=== PATIENT | female | born 1990 | race African-American/Black ===

== ENCOUNTER 2017-09-09 10:29 | Emergency (ER) | payer OTHER | END 2017-09-09 11:28 | disposition home or self-care (01) | LOC: ER 10:29 | DX: M43.6 Torticollis (principal); J06.9 Acute upper respiratory infection, unspecified | CPT/HCPCS: 99283 ==

== ENCOUNTER 2020-01-23 01:08 | Emergency (ER) | payer OTHER ==
[2017-09-09 11:01] VITALS: BP 106/50
[~2020-01-23 01:08] MED LIST: AZIT250T PO; CYCL5TAB PO; DICL50TA4 PO
== END 2020-01-23 03:00 | disposition left against medical advice (07) ==
LOC: ER 01:08
DX: R10.9 Unspecified abdominal pain (principal); Z53.21 Procedure and treatment not carried out due to patient leaving prior to being seen by health care provider

== ENCOUNTER 2021-09-18 09:24 | Emergency (ER) | payer OTHER ==
[~2021-09-18] VITALS: Ht 162.6 cm; Wt 54.4 kg
--- NOTE | 2021-09-18 09:59 | PHYS DOC ---
Past Medical History Past Medical History: Anemia Past Surgical History: No Surgical History Smoking Status: Never Smoker Alcohol Use: None Drug Use: None General Adult EDM: Chief Complaint: NAUSEA/VOMITING/DIARRHEA HPI: HPI: Patient is a 30 year old female who presents with epigastric, burning abdominal pain. Patient states that she has had nausea and vomiting since Thursday. Denies diarrhea. Denies fever. Denies cough or shortness of breath. Patient has been vaccinated for COVID-19. Denies all medical history. Review of Systems: Review of Systems: Constitutional: Denies fever or chills. [] Eyes: Denies change in visual acuity. [] HENT: Denies nasal congestion or sore throat. [] Respiratory: Denies cough or shortness of breath. [] Cardiovascular: Denies chest pain or edema. [] GI: Reports abdominal pain, nausea and vomiting. Denies diarrhea. : Denies dysuria. [] Musculoskeletal: Denies back pain or joint pain. [] Integument: Denies rash. [] Neurologic: Denies headache, focal weakness or sensory changes. [] Endocrine: Denies polyuria or polydipsia. [] Lymphatic: Denies swollen glands. [] Psychiatric: Denies depression or anxiety. [] Heart Score: C/O Chest Pain: No Risk Factors: Risk Factors: DM, Current or recent (<one month) smoker, HTN, HLP, family history of CAD, obesity. Risk Scores: Score 0 - 3: 2.5% MACE over next 6 weeks - Discharge Home Score 4 - 6: 20.3% MACE over next 6 weeks - Admit for Clinical Observation Score 7 - 10: 72.7% MACE over next 6 weeks - Early Invasive Strategies Allergies: Allergies: Allergies Coded Allergies Type Severity Reaction Last Updated Verified No Known Drug Allergies 09/18/21 No Physical Exam: PE: Constitutional: Well developed, well nourished, no acute distress, non-toxic appearance HENT: Normocephalic, atraumatic, bilateral external ears normal, oropharynx moist, no oral exudates, nose normal Eyes: PERRLA, conjunctiva normal, no discharge. Neck: Normal range of motion, no tenderness, supple, no stridor. Cardiovascular:Heart rate regular rhythm, no murmur Lungs & Thorax: Bilateral breath sounds clear to auscultation Abdomen: Bowel sounds normal, soft, epigastric tenderness Skin: Warm, dry, no erythema, no rash Back: No tenderness, no CVA tenderness Extremities: No tenderness, no cyanosis, no clubbing, ROM intact, no edema Neurologic: Alert and oriented X 3, normal motor function, normal sensory f unction, no focal deficits noted Psychologic: Affect normal, judgement normal, anxious mood EKG: EKG: Sinus rhythm. Heart rate [address] elevation or depression. No STEMI. Interpreted by Dr. Steward at 1009 [] Radiology/Procedures: Radiology/Procedures: []XR CHEST 1V CLINICAL INDICATIONS: Reason: epigastric pain / Spl. Instructions: / History: COMPARISON: November 15, 2008. Findings: No acute lung infiltrate or pleural effusion or pulmonary edema or lung mass or pneumothorax is seen. The heart size, pulmonary vasculature, mediastinum and both alisha are unremarkable. Mild thoracolumbar scoliosis is seen. IMPRESSION: No acute radiographic abnormality is seen. Electronically signed by: Hua Bryant MD (09/18/2021 10:13 AM) [id number] EXAM: Abdomen and pelvis CT without intravenous contrast. HISTORY: Pain. TECHNIQUE: Computed tomographic images of the abdomen and pelvis were obtained without contrast. Multiplanar reformatting was performed. *One or more of the following individualized dose reduction techniques were utilized for this examination: 1. Automated exposure control. 2. Adjustment of the mA and/or kV according to patient size. 3. Use of iterative reconstruction technique. COMPARISON: None. FINDINGS: Evaluation of the lower thorax is unremarkable. No hepatic lesion is seen. The gallbladder, pancreas, spleen and adrenal glands are unremarkable. There is elongated right hepatic lobe, a normal variant. There is no hepatomegaly. There is no hydronephrosis. The appendix is not clearly seen, with evaluation limited due to the absence of intravenous contrast. There are no secondary findings to suggest appendicitis. There is no bowel obstruction. The bladder is nearly empty. There are multiple pelvic phleboliths. There is a retroverted uterus. There are bilateral ovarian follicles, measuring up to 1.4 cm on the right. There is a small amount of pelvic free fluid, within physiologic limits for a premenopausal female. IMPRESSION: No convincing acute finding. The appendix is not seen. There are no secondary findings to suggest appendicitis. Electronically signed by: Jennie Oliver MD (09/18/2021 11:10 AM) [id number] Course & Med Decision Making: Course & Med Decision Making Pertinent Labs and Imaging studies reviewed. (See chart for details) [] 30-year-old female presents with epigastric abdominal pain, nausea and vomiting since Thursday. Work-up in ER consisted of labs, urinalysis, urine , CT abdomen and pelvis. Patient's nausea and pain was treated in the ER Potassium, 3.2. Patient still reporting nausea. Patient given second dose of Zofran. Will reevaluate before giving p.o. potassium. Patient also given 1 of Ativan due to anxiety. Patient is hyperventilating and complaining of tingling in her hands and dizziness. Rebekah Disclaimer: Rebekah Disclaimer: This electronic medical record was generated, in whole or in part, using a voice recognition dictation system. Departure Departure Impression: Primary Impression: Nausea & vomiting Qualified Codes: R11.2 - Nausea with vomiting, unspecified Disposition: 01 HOME / SELF CARE / HOMELESS Condition: STABLE Referrals: NO PCP (PCP) Patient Instructions: Nausea and Vomiting, [id number] Additional Instructions: You were seen in the emergency room for nausea and vomiting. You were given medication to help with acid reflux and nausea. Your vomiting is most likely due to your marijuana use. I am sending you home with prescription for Zofran. Sure you are drinking plenty of fluids. Return to emergency room if you have worsening symptoms or concerns such as chest pain, increase in abdominal pain, unable to keep any liquids down. EMERGENCY DEPARTMENT GENERAL DISCHARGE INSTRUCTIONS Thank you for coming to [facility] Emergency Department (ED) today and trusting us with you care. We trust that you had a positive experience in our Emergency Department. If you wish to speak to the department management, you may call the Director at [phone]. YOUR FOLLOW UP INSTRUCTIONS ARE FOLLOWS: 1. Do you have a private Doctor? If you do not have a private doctor, please ask for a resource list of physicians or clinics that may be able to assist you with follow up care. 2. The Emergency Physicain has interpreted your x-rays. The X-Ray specialist will also review them. If there is a change in the findings, you will be notified in 48 hours when at all possible. 3. A lab test or culture has been done, your results will be reviewed and you will be notified if you need a change in treatment. ADDITIONAL INSTRUCTIONS AND INFORMATION: 1. Your care today has been supervised by a physician who is specially trained in emergency care. Many problems require more than one evaluation for a complete diagnosis and treatment. We recommend that you schedule your follow up appointment as recommended to ensure complete treatment of you illness or injury. If you are unable to obtain follow up care and continue to have a problem, or if your condition worsens, we recommend that you return to the ED. 2. We are not able to safely determine your condition over the phone nor are we able to give sound medical advice over the phone. For these safety reasons, if you call for medical advice we will ask you to come to the ED for further evaluation. 3. If you have any questions regarding these discharge instructions please call the ED at [phone]. SAFETY INFORMATION: In the interest of safety, wellness, and injury prevention; we encourage you to wear your sealbelt, if you smoke; quite smoking, and we encourage family to use a protective helmet for bicycling and other sporting events that present an increased risk for head injury. IF YOUR SYMPTOMS WORSEN OR NEW SYMPTOMS DEVELOP, OR YOU HAVE CONCERNS ABOUT YOUR CONDITION; OR IF YOUR CONDITION WORSENS WHILE YOU ARE WAITING FOR YOUR FOLLOW UP APPOINTMENT; EITHER CONTACT YOUR PRIMARY CARE DOCTOR, THE PHYSICIAN WHOSE NAME AND NUMBER YOU WERE GIVEN, OR RETURN TO THE ED IMMEDIATELY. Scripts Ondansetron (ONDANSETRON ODT) 4 Mg Tab.rapdis 1 TAB PO PRN Q6-8HRS PRN for NAUSEA/VOMITING for 4 Days, #16 TAB 0 Refills Prov: JUNIOR DAY APRN 09/18/21 JUNIOR DAY APRN Sep 18, 2021 09:59
[2021-09-18] MEDS ORDERED: IV NORMAL SALINE 1000ML BAG 1,000 ML IV SCH (10:00)
[2021-09-18] MEDS ORDERED: ONDANSETRON PF 4 MG/2 ML VIAL. IVP ONE ×2 (10:00→11:30)
[2021-09-18] MEDS ORDERED: FAMOTIDINE 20 MG/2 ML VIAL IVP ONE (10:00)
[2021-09-18 10:08] LABS: BASO % 1 % (0-3); EOS # 0.1 x10^3/uL (0.0-0.7); EOS % 1 % (0-3); HEMOGLOBIN 13.9 g/dL (12.0-15.5); LYMPH # 1.4 x10^3/uL (1.0-4.8); LYMPH % 26 % (24-48); MEAN CORPUSCULAR HEMOGLOBIN 27 pg (25-35); MEAN CORPUSCULAR HGB CONC 33 g/dL (31-37); MEAN CORPUSCULAR VOLUME 82 fL (79-100); MONO # 0.4 x10^3/uL (0.0-1.1); MONO % 7 % (0-9); NEUT # 3.6 x10^3/uL (1.8-7.7); NEUT % 65 % (31-73); PLATELET COUNT 187 x10^3/uL (140-400); RED CELL DISTRIBUTION WIDTH 14.9 % (11.5-14.5); WHITE BLOOD COUNT 5.5 x10^3/uL (4.0-11.0)
--- NOTE | 2021-09-18 10:15 | RAD ---
XR CHEST 1V CLINICAL INDICATIONS: Reason: epigastric pain / Spl. Instructions: / History: COMPARISON: November 15, 2008. Findings: No acute lung infiltrate or pleural effusion or pulmonary edema or lung mass or pneumothora x is seen. The heart size, pulmonary vasculature, mediastinum and both alisha are unremarkable. Mild t horacolumbar scoliosis is seen. IMPRESSION: No acute radiographic abnormality is seen. Electronically signed by: Hua Bryant MD (09/18/2021 10:13 AM) [id number]
[2021-09-18 10:24] LABS: PREG TEST PT QUAL NEGATIVE (NEG)
[2021-09-18 10:24] LABS: U PREG PATIENT NEGATIVE (NEG)
[2021-09-18 10:26] LABS: BILIRUBIN,URINE SMALL (NEG); CLARITY,URINE CLOUDY; COLOR,URINE AMBER; NITRITE,URINE NEGATIVE (NEG); PROTEIN,URINE 30 mg/dL (NEG-TRACE); UROBILINOGEN,URINE 0.2 mg/dL (0.2 mg/dL)
[2021-09-18 10:30] LABS: CALCIUM 9.3 mg/dL (8.5-10.1); GFR 79.3; POTASSIUM 3.2 mmol/L (3.5-5.1)
[2021-09-18 10:45] LABS: ALBUMIN 4.4 g/dL (3.4-5.0); DIRECT BILIRUBIN 0.2 mg/dL (0.0-0.2); TOTAL BILIRUBIN 0.7 mg/dL (0.2-1.0); TOTAL PROTEIN 8.9 g/dL (6.4-8.2)
[2021-09-18 10:47] LABS: BACTERIA,URINE FEW /HPF (0-FEW)
--- NOTE | 2021-09-18 11:13 | RAD ---
EXAM: Abdomen and pelvis CT without intravenous contrast. HISTORY: Pain. TECHNIQUE: Computed tomographic images of the abdomen and pelvis were obtained without contrast. Mult iplanar reformatting was performed. *One or more of the following individualized dose reduction techniques were utilized for this examina tion: 1. Automated exposure control. 2. Adjustment of the mA and/or kV according to patient size. 3. Use of iterative reconstruction technique. COMPARISON: None. FINDINGS: Evaluation of the lower thorax is unremarkable. No hepatic lesion is seen. The gallbladder, pancreas, spleen and adrenal glands are unremarkable. There is elongated right hepatic lobe, a justin l variant. There is no hepatomegaly. There is no hydronephrosis. The appendix is not clearly seen, wi th evaluation limited due to the absence of intravenous contrast. There are no secondary findings to suggest appendicitis. There is no bowel obstruction. The bladder is nearly empty. There are multiple pelvic phleboliths. There is a retroverted uterus. There are bilateral ovarian follicles, measuring u p to 1.4 cm on the right. There is a small amount of pelvic free fluid, within physiologic limits for a premenopausal female. IMPRESSION: No convincing acute finding. The appendix is not seen. There are no secondary findings to suggest appendicitis. Electronically signed by: Jennie Oliver MD (09/18/2021 11:10 AM) [id number]
[2021-09-18 12:30] VITALS: BP 104/64
[2021-09-18] MEDS ORDERED: ONDA4TAB12 PO (12:39)
--- NOTE | 2021-09-18 14:33 | EKG ---
[facility] [address] [place] [address] Test Date: 2021-09-18 Test Time: 10:06:04 Pat Name: ANDREINA LUCIO Department: Room: Gender: F Acid Treater: : 1990 Requested By: JUNIOR DAY Order Number: [id number] Reading MD: Jose Francisco Martin Measurements Intervals [place] Rate: 67 P: 43 TX: 132 QRS: 87 QRSD: 72 T: 69 QT: 394 QTc: 419 Interpretive Statements SINUS RHYTHM QRS(T) CONTOUR ABNORMALITY CONSISTENT WITH SEPTAL MYOCARDIAL DAMAGE ABNORMAL ECG RI6.02 No previous ECG available for comparison Electronically Signed On 09-18-2021 19:55:28 DRAPERY AND UPHOLSTERY ESTIMATOR by Jose Francisco Martin
== END 2021-09-18 12:50 | disposition home or self-care (01) ==
LOC: ER 09:24
DX: R11.2 Nausea with vomiting, unspecified (principal); R10.13 Epigastric pain; R42 Dizziness and giddiness; R20.2 Paresthesia of skin
CPT/HCPCS: 36415; 71045; 74176; 80053; 80076; 81001; 81025; 83690; 84703; 85025; 87077; 87086; 87186; 93005; 96361; 96374; 96375; 96376; 99285; J2060; J2405; J3490; J7030